=== PATIENT | female | born 1930 | race Caucasian/White ===

== ENCOUNTER → 2016-09-29 | Outpatient (CLI) | payer OTHER ==
[2016-09-29 18:25] LABS: HEMOGLOBIN 15.3 gm/dl (12.3-15.3); RED BLOOD COUNT 4.99 M/UL (4.00-5.10); WHITE BLOOD COUNT 10.3 K/UL (4.5-11.0)
== END ==
LOC: LAB 17:37
PROVIDERS: Family Medicine
DX: J42 Unspecified chronic bronchitis (principal); J20.9 Acute bronchitis, unspecified; R05 Cough; I25.10 Atherosclerotic heart disease of native coronary artery without angina pectoris; J44.9 Chronic obstructive pulmonary disease, unspecified; J84.9 Interstitial pulmonary disease, unspecified
CPT/HCPCS: 36415; 71020; 80053; 85025

== ENCOUNTER → 2016-10-29 | Outpatient (CLI) | payer OTHER | LOC: KOH-I 14:26 | DX: R05 Cough (principal); R06.02 Shortness of breath; J20.9 Acute bronchitis, unspecified; J90 Pleural effusion, not elsewhere classified | CPT/HCPCS: 71020 ==